=== PATIENT | female | born 1990 | race Caucasian/White ===

== ENCOUNTER → 2017-07-01 21:52 | Emergency (ER) | payer BC ==
[~2017-07-01 21:52] MED LIST: Metoclopramide IV* 5 MG/ML 2 ML VIAL IV SLOW PU ONE; NS 0.9% 1000 ML* 1,000 ML IV ONE
--- NOTE | 2017-07-01 22:36 | ED ---
- HPI Summary HPI Summary: 27F LMp in may at 6 weeks presents with abdominal pain since last night. She states started to bleed last night. She states she is miscarrying. She denies any fevers. She admits to nausea vomiting diarrhea. She denies any pain with urination. She denies any flank pain. States her abdominal pain is lower and is crap like and comes in waves. She is passing blood clots. She is bleeding as much as a period. She denies any lightheadedness. She had a confirmed by urine two weeks ago. She called her anatomic pathology assistant who told her to come here. - History of Current Complaint Chief Complaint: EDOBProblems Stated Complaint: ABD PAIN Time Seen by Provider: 07/01/17 22:00 Pain Intensity: 8 - Allergies/Home Medications Allergies/Adverse Reactions: Allergies Allergy/AdvReac Type Severity Reaction Status Date / Time No Known Allergies Allergy Verified 07/01/17 21:54 PMH/Surg Hx/FS Hx/Imm Hx Endocrine/Hematology History: Denies: Hx Anticoagulant Therapy Respiratory History: Denies: Hx Asthma Infectious Disease History: No Infectious Disease History: Denies: Traveled Outside the [place] in Last 30 Days - Family History Known Family History: Negative: Blood Disorder - Social History Alcohol Use: Rare Substance Use Type: Reports: None Smoking Status (MU): Never Smoked Tobacco Review of Systems Negative: Fever Negative: Chest Pain Negative: Shortness Of Breath Positive: Abdominal Pain, Vomiting, Diarrhea, Nausea All Other Systems Reviewed And Are Negative: Yes Physical Exam - Physical Exam Triage Information Reviewed: Yes Vital Signs Reviewed: Yes Appearance: Positive: Well-Appearing Skin: Positive: Warm, Dry Head/Face: Positive: Normal Head/Face Inspection Eyes: Positive: Normal, Conjunctiva Clear Respiratory/Lung Sounds: Positive: Clear to Auscultation, Breath Sounds Present Cardiovascular: Positive: Normal, RRR Abdomen Description: Positive: Soft, Other: - mild suprapubic tenderness Bowel Sounds: Positive: Present Musculoskeletal: Positive: Normal Neurological: Positive: Normal Psychiatric: Positive: Normal Diagnostics - Vital Signs Vital Signs Temp Pulse Resp BP Pulse Ox 07/01/17 21:55 97.9 F 89 18 116/73 100 - Laboratory Result Diagrams: 07/01/17 23:00 07/01/17 23:00 Lab Statement: Any lab studies that have been ordered have been reviewed, and results considered in the medical decision making process. - Ultrasound No standard instances Ultrasound Interpretation: Positive (See Comments) - Endometrium and cervix canal with thickened heterogeneous fluid likely reflecting blood products. Normal left and right ovaries. Ultrasound Interpretation Completed By: Radiologist Course/Dx - Course Course Of Treatment: 27F LMp in may at 6 weeks presents with abdominal pain since last night. She states started to bleed last night. She states she is miscarrying. She denies any fevers. She admits to nausea vomiting diarrhea. She denies any pain with urination. She denies any flank pain. States her abdominal pain is lower and is crap like and comes in waves. She is passing blood clots. She is bleeding as much as a period. She denies any lightheadedness. She had a confirmed by urine two weeks ago. She called her anatomic pathology assistant who told her to come here. On exam tenderness mild suprapubic. States was feeling better. Has white blood cell count elevated but CRP is normal. Ultrasound shows no intrauterine shows heterogeneous fluid throughout endometrium and cervical canal with an hCG of 800 this likely represents a miscarriage. We'll have follow-up with ob to make sure trending downwards. patient understand and agrees with plan. - Differential Diagnosis/HQI/PQRI: Spontaneous , Threatened , Intrauterine - Diagnoses Provider Diagnoses: Miscarriage Discharge - Sign-Out/Discharge Documenting (check all that apply): Discharge/Admit/Transfer - Discharge Plan Condition: Good Disposition: HOME Patient Education Materials: Miscarriage (ED) Referrals: No Primary Care Phys,NOPCP [Primary Care Provider] - Additional Instructions: Follow up with obgyn to trend hcg level Take Tylenol or ibuprofen every 6 hours for pain Return to ED if develop fever or any new or worsening symptoms - Billing Disposition and Condition Condition: GOOD Disposition: HOME
[2017-07-01 23:17] LABS: Hematocrit 37 % (35-47); Hemoglobin 12.7 g/dl (12.0-16.0); Mean Corpuscular HGB Conc 35 g/dl (31-36); Mean Corpuscular Hemoglobin 32 pg (27-31); Mean Corpuscular Volume 94 fL (80-97); Red Blood Count 3.93 10^6/ul (4.0-5.4); Red Cell Distribution Width 12 % (10.5-15); White Blood Count 14.3 10^3/ul (3.5-10.8)
[2017-07-01 23:28] LABS: EGFR Non-African American 94.1 (>60)
[2017-07-01 23:31] LABS: INR 0.9 (0.77-1.02)
[2017-07-01 23:59] LABS: ABS Basophils 0.1 10^3/ul (0-0.2); ABS Eosinophils 0.1 10^3/ul (0-0.6); ABS Lymphocytes 2.8 10^3/ul (1.0-4.8); ABS Neutrophils 10.3 10^3/ul (1.5-7.7); ABS Nucleated RBC 0 10^3/ul; Eosinophil % 0.8 % (0-6); Lymphocyte % 19.6 % (25-47); Mean Platelet Volume 9.3 um3 (7.4-10.4); Nucleated Red Blood Cells % 0; Platelet Count 209 10^3/ul (150-450)
[2017-07-02 00:41] VITALS: BP 151/82
--- NOTE | 2017-07-02 08:03 | RAD ---
HISTORY: Bleeding and cramping since the previous night COMPARISONS: None TECHNIQUE: Multiple transverse and longitudinal ultrasound images were obtained of the pelvis using grayscale, color flow, spectral and M-mode sonographic imaging. FINDINGS: UTERUS: The uterus measures 8.9 x 3.3 x 5.3 cm. The endometrial stripe is heterogeneous but avascular measuring up to 15 mm in diameter. GESTATION: There is no gestational sac or products of conception identified. CUL-DE-SAC: There is a moderate amount of free fluid in the right greater than left adnexa. RIGHT OVARY: The right ovary measures 3.1 x 2.6 x 2.1 cm. LEFT OVARY: The left ovary measures 4.1 x 1.3 x 1.4 cm. IMPRESSION: No live intrauterine or products of conception identified. Thickened and avascular material in the endometrial lumen could be products of conception undergoing spontaneous . Alternative diagnoses include a too early to identify or ectopic . Close clinical follow-up including serial beta hCGs is advised.
== END | disposition home or self-care (01) ==
LOC: ED 21:52
DX: O03.9 Complete or unspecified spontaneous abortion without complication (principal); R11.2 Nausea with vomiting, unspecified; R19.7 Diarrhea, unspecified; R10.30 Lower abdominal pain, unspecified
CPT/HCPCS: 36415; 76817; 80053; 83690; 83735; 84702; 85025; 85610; 85730; 86141; 86900; 86901; 96360; 99282

== ENCOUNTER 2018-06-06 18:10 | Inpatient (IN) | payer OTHER ==
[2018-06-06] MEDS ORDERED: Lactated Ringers 1000 ML Bag* 1,000 ML IV ONE ×2 (18:32→20:11)
[2018-06-06] MEDS ORDERED: Buffered Lidocaine 1% SYRIN* 1 ML/SYRINGE INTRADERM ONE (18:32)
[2018-06-06] MEDS ORDERED: OBEPIDURAL* 250 ML EPIDURAL ONE (18:41)
[2018-06-06 18:49] LABS: ABS Basophils 0.1 10^3/ul (0-0.2); ABS Eosinophils 0 10^3/ul (0-0.6); ABS Lymphocytes 1.5 10^3/ul (1.0-4.8); ABS Monocytes 1.5 10^3/ul (0-0.8); ABS Neutrophils 15.2 10^3/ul (1.5-7.7); ABS Nucleated RBC 0 10^3/ul; Eosinophil % 0 %; Hematocrit 38 % (33-41); Hemoglobin 13.3 g/dL (12.0-16.0); Lymphocyte % 8.2 %; Mean Corpuscular HGB Conc 35 g/dL (31-36); Mean Corpuscular Hemoglobin 34 pg (27-31); Mean Corpuscular Volume 98 fL (80-97); Nucleated Red Blood Cells % 0; Platelet Count 185 10^3/uL (150-450); Red Blood Count 3.88 10^6 /uL (3.70-4.87); Red Cell Distribution Width 13 % (10.5-15); White Blood Count 18.4 10^3/uL (3.5-10.8)
[2018-06-06] MEDS: Lactated Ringers 1000 ML Bag* 1,000 ML IV SCH ×3 (19:10→22:58)
[2018-06-06] MEDS ORDERED: Phenylephrine 40 MCG/ML SYRINGE ONE (20:08)
[2018-06-06] MEDS ORDERED: Phenylephrine 10 MG/ML VIAL* 1 ML VIAL ONE (20:08)
[2018-06-06] MEDS ORDERED: Lactated Ringers 1000 ML Bag* 500 ML IV PRN ×2 (20:11)
[2018-06-06] MEDS ORDERED: Phenylephrine 40 MCG/ML SYRINGE IV PUSH PRN ×2 (20:11)
[2018-06-06] MEDS ORDERED: Sodium Citrate/Citric Acid* 15 ML UDC PO PRN (20:11)
[2018-06-06] MEDS ORDERED: Famotidine TAB* 20 MG PO PRN (20:11)
[2018-06-06] MEDS ORDERED: EPHEDrine (Pressors)* 50 MG/ML VIAL IV PUSH PRN ×2 (20:11)
--- NOTE | 2018-06-06 20:30 | HP ---
General Information - Reason for Visit long latent phase of labor/ desires pain management - General Information Maternal Age: 28 Grav: 2 Para: 0 SAB: 1 IEA: 0 Estimated Due Date: 05/27/18 Determined By: LMP Maternal Blood Type and Rh: A Positive - Results this Serology/RPR Result: Non-Reactive Rubella Result: Immune HBsAg Result: Negative HIV Result: Negative GBS Culture Result: Negative Past Medical History Delivery History: See Records Pertinent Past Medical History: See Records Pertinent Past Surgical History: See Records Pertinent Family History: See Records - Antepartal Records Antepartal Records: Reviewed, Uncomplicated Review of Systems Constitutional: Uncomfortable CV Complaint: No Respiratory: Shortness of Breath: No Gastrointestinal: No Nausea/Vomiting Genitourinary: No Dysuria Musculoskeletal: Back Pain, Contractions Neurological: No Headache Movement: Normal Exam Allergies/Adverse Reactions: Allergies No Known Allergies Allergy (Verified 07/01/17 21:54) Lab Values - Entire Visit: Laboratory Tests 06/06/18 06/06/18 18:35 18:35 WBC 18.4 H RBC 3.88 Hgb 13.3 Hct 38 MCV 98 H MCH 34 H MCHC 35 RDW 13 Plt Count 185 MPV 11.0 H Neut % (Auto) 82.7 Lymph % (Auto) 8.2 [place] % (Auto) 8.3 Eos % (Auto) 0 Baso % (Auto) 0.8 Absolute Neuts (auto) 15.2 H Absolute Lymphs (auto) 1.5 Absolute Monos (auto) 1.5 H Absolute Eos (auto) 0 Absolute Basos (auto) 0.1 Absolute Nucleated RBC 0 Nucleated RBC % 0 Blood Type A Positive Antibody Screen Negative - Measurements Height: 5 ft 1 in Weight: 133 lb Weight in lbs: 133.481740 Body Mass Index (BMI): 25.1 Pre- Weight: 107 lb Weight Gained This : 26 lbs and 0 ozs - Exam Breast: Breast Exam Deferred CVA: No CVA Tenderness Extremities: No Edema Heart: Normal Rhythm/Heart Sounds HEENT: No Significant Findings Lungs: Clear Bilaterally Rectal: Rectal Exam Deferred Reflexes: DTR 2+ Thyroid: No Thyromegaly - Abdominal Exam Abdomen Exam: Non-Tender - Ultrasound/Biophysical Profile Ultrasound Status: Not Done Targeted Exam Findings Cervical Exam: 2cm, 3cm Effacement: 90% Station: -1 Presenting Part: Vertex Membrane Status: Intact EFM Findings - External Monitor Findings Baseline Heart Rate: 140 External Monitor Findings: Accelerations Present, No Pattern of Variable or Late Decelerations, Variability Moderate Contractions: Mild - q4 Assessment/Plan - Assessment Pt 28 yo G1 presents at 41 3/7 weeks with prolonged latent phase of labor/ home transfer - Obstetrical Risk Factors Risk Factors Comment: will admit give epidural for pain relief and then begin augmentation of labor. Pt in agreement with plan. - Plan Plan: Admit - Anticipate Vaginal Delivery
[2018-06-06] MEDS ORDERED: OBEPIDURAL* 250 ML EPIDURAL SCH (21:00)
[2018-06-06] MEDS ORDERED: Lactated Ringers 1000 ML Bag* 1,000 ML IV SCH (21:00)
[2018-06-06] MEDS ORDERED: Oxytocin in LR* 20 UNITS/1,000 ML BAG IVPB SCH (21:00)
[2018-06-06] MEDS ORDERED: Calcium Carbonate CHEW TAB* 500 MG (TUMS) ONE (23:58)
[2018-06-07] MEDS ORDERED: Calcium Carbonate CHEW TAB* 500 MG (TUMS) PO PRN (00:59)
[2018-06-07] MEDS ORDERED: ceFOXitin 2 GM IVPREMIX* 2 GM/50 ML BAG IVPB ONE (05:59)
[2018-06-07] MEDS ORDERED: fentaNYL* 50 MCG/ML 2 ML VIAL (100 MCG VIAL) ONE ×2 (06:04→06:10)
[2018-06-07] MEDS ORDERED: Chloroprocaine 3%* 20 ML VIAL ONE (06:05)
[2018-06-07] MEDS ORDERED: Dexamethasone IV* 4 MG/ML 1 ML (4 MG) ONE (06:13)
[2018-06-07] MEDS ORDERED: Ondansetron INJ* 2 MG/ML VIAL ONE (06:13)
[2018-06-07] MEDS ORDERED: OXYTOCIN* 10 UNITS/ML 1 ML VIAL ONE (06:13)
[2018-06-07] MEDS ORDERED: KETAMINE HCL* 50 MG/ML 10 ML VIAL ONE (06:42)
[2018-06-07] MEDS ORDERED: Lidocaine 2% EPI 1:200000 MPF*10-20 ML VIAL ONE (06:42)
[2018-06-07] MEDS ORDERED: Morphine PF AMP (0.5MG/ML)* 5 MG/10 ML AMP ONE (06:59)
[2018-06-07] MEDS ORDERED: oxyCODONE TAB* 5 MG TAB PO PRN ×2 (07:07→07:09)
[2018-06-07] MEDS ORDERED: fentaNYL* 50 MCG/ML 2 ML VIAL (100 MCG VIAL) IV PRN (07:07)
[2018-06-07] MEDS ORDERED: DiMENhydriNATE IV* 50 MG/ML VIAL IV PUSH PRN ×2 (07:07→07:09)
[2018-06-07] MEDS ORDERED: Naloxone* 0.4 MG/ML 1 ML VIAL IV PRN ×2 (07:07→07:09)
[2018-06-07] MEDS ORDERED: Ketorolac INJ* 30 MG/ML 1 ML VIAL IV PRN (07:07)
[2018-06-07] MEDS ORDERED: Acetaminophen IV 1GM/100ML * 1,000 MG/100 ML VIAL IVPB ONE (07:07)
[2018-06-07] MEDS ORDERED: Ondansetron INJ* 2 MG/ML VIAL IV PRN (07:09)
[2018-06-07] MEDS ORDERED: Nalbuphine* 10 MG/ML 1 ML VIAL IV PRN (07:09)
[2018-06-07] MEDS ORDERED: Scopolamine 1.5 mg* PATCH TRANSDERM PRN (07:09)
[2018-06-07] MEDS ORDERED: oxyCODONE/Acetamin 5/325 MG* TAB PO PRN ×2 (07:48)
[2018-06-07] MEDS ORDERED: Dibucaine 1% 28.35 GM TUBE PR PRN (07:48)
[2018-06-07] MEDS ORDERED: Glycerin ADULT SUPP PR PRN (07:48)
[2018-06-07] MEDS ORDERED: Witch Hazel PAD* JAR TOPICAL PRN (07:48)
[2018-06-07] MEDS ORDERED: Tetan/Diph/Pertus SYR(Tdap)* 0.5 ML SYR(BOOSTRIX) use SYR IM ONE (07:48)
[2018-06-07] MEDS ORDERED: Oxytocin in LR* 20 UNITS/1,000 ML BAG IVPB SCH (08:00)
[2018-06-07] MEDS ORDERED: Lactated Ringers 1000 ML Bag* 1,000 ML IV SCH (08:00)
--- NOTE | 2018-06-07 09:36 | OP ---
DATE OF OPERATION: 06/07/18 - ROOM #102 DATE OF : 89 SURGEON: Imani Steven MD. MANDARIN CHINESE TEACHER: Ervin Bella CNM. ANESTHESIOLOGIST: Dr. Driscoll. ANESTHESIA: Epidural with local. PRE-OP DIAGNOSIS: Intrauterine 41 and 4/7 weeks, arrest of dilation. POST-OP DIAGNOSIS: Intrauterine 41 and 4/7 weeks, arrest of dilation. OPERATIVE PROCEDURE: Primary low-transverse section. ESTIMATED BLOOD LOSS: 600 cc. URINE OUTPUT: 600 cc. IV FLUIDS: 2200 cc of crystalloid. FINDINGS: Revealed a vertex LOT male , nuchal cord x1, arm cord x1, body cord x1. White meconium, Apgars were 9 at 1 minute, 9 at 5 minutes, 8 pounds 1 ounce. Placenta was manually extracted. Three-vessel cord intact. Normal- appearing tubes and ovaries bilaterally. Normal uterine cavity without evidence of retained membranes or placental tissue. COMPLICATIONS: None apparent. DISPOSITION: Stable to recovery room. DESCRIPTION OF PROCEDURE: The patient was placed in dorsal lithotomy position. The abdomen was prepped and draped in sterile standard fashion. The patient was identified with universal protocol. Anesthesia was tested to appropriate level. Incision was made. The patient noted some tenderness to the left, at which point 18 cc of 2% lidocaine was injected in the incisional site. A scalpel was used to carry down through to the fascia. The fascia was scored in the midline, extended laterally and superiorly using curved Hinton scissors, superiorly and inferiorly from the rectus muscle with blunt and sharp dissection. Peritoneum was then entered bluntly. Bladder blade was inserted. Lower uterine segment was identified. Bladder flap was created through blunt and sharp dissection. Incision was made in the lower uterine segment. Amniotic fluid was noted to have some white meconium. The was found to be LOT. Head was delivered, nuchal cord reduced. Arms were delivered, nuchal cord reduced. Body was delivered and body cord reduced. Cord was allowed to pulse for 60 seconds. The cord was then clamped and cut and baby was handed off to the ball truing machine operator. Appropriate cord blood was obtained. The placenta was then manually extracted. The uterus was exteriorized. Uterine cavity was explored, noted to be free of any membranes or placental tissue. Uterine incision itself was reapproximated in two layers, first layer running locked 0 Vicryl, second layer running imbricated 0 Vicryl. Tubes and ovaries normal in appearance. Uterus was returned intraabdominally. Colic gutters were lavaged. Hemostasis was assured at the hysterotomy site. The peritoneum was then clamped with Kellys and the peritoneum was then reapproximated using 3-0 Vicryl in a running fashion. Subfascial area was visualized and noted to be hemostatic. Fascia was reapproximated using 0 Vicryl in a running fashion x2. Subcu was lavaged. Hemostasis was assured with Bovie coagulation and a subcuticular stitch using 3-0 Vicryl was placed in an interrupted fashion. Skin was then reapproximated using 4-0 Monocryl in a subcuticular fashion. Mastisol and Steris were applied. All sponge, instrument, and blade counts were correct throughout the case. The patient tolerated the procedure well and went to recovery room in stable condition. [id number]/[facility] #: [id number] JON
[2018-06-07] MEDS: Simethicone TAB* 80 MG TAB.CHEW PO SCH ×3 (14:15→20:43)
[2018-06-07] MEDS: Docusate CAP* 100 MG PO SCH ×2 (14:15→20:58)
[2018-06-07] MEDS: Ketorolac INJ* 30 MG/ML 1 ML VIAL IV SCH ×2 (14:16→20:43)
[2018-06-07] MEDS: Acetaminophen TAB* 325 MG PO SCH ×2 (20:59→23:51)
[2018-06-08] MEDS: Ketorolac INJ* 30 MG/ML 1 ML VIAL IV SCH (03:09)
[2018-06-08 07:07] LABS: ABS Basophils 0.1 10^3/ul (0-0.2); ABS Eosinophils 0 10^3/ul (0-0.6); ABS Monocytes 1.5 10^3/ul (0-0.8); ABS Neutrophils 13.4 10^3/ul (1.5-7.7); ABS Nucleated RBC 0 10^3/ul; Eosinophil % 0.2 %; Hematocrit 31 % (33-41); Hemoglobin 10.5 g/dL (12.0-16.0); Lymphocyte % 11.8 %; Mean Corpuscular HGB Conc 35 g/dL (31-36); Mean Corpuscular Hemoglobin 34 pg (27-31); Mean Corpuscular Volume 98 fL (80-97); Mean Platelet Volume 10.5 fL (7.4-10.4); Nucleated Red Blood Cells % 0; Platelet Count 134 10^3/uL (150-450); Red Cell Distribution Width 13 % (10.5-15); White Blood Count 17.1 10^3/uL (3.5-10.8)
[2018-06-08] MEDS ORDERED: Ferrous Gluconate TAB* 324 MG TAB PO SCH (09:00)
[2018-06-08] MEDS: Ibuprofen TAB* 600 MG PO PRN ×3 (09:16→21:38)
[2018-06-08] MEDS: Simethicone TAB* 80 MG TAB.CHEW PO SCH ×4 (09:16→20:59)
[2018-06-08] MEDS: Docusate CAP* 100 MG PO SCH ×4 (09:16→20:59)
[2018-06-08] MEDS: Acetaminophen TAB* 325 MG PO PRN ×2 (17:45→21:46)
[2018-06-09] MEDS: Ibuprofen TAB* 600 MG PO PRN (05:39)
[2018-06-09] MEDS: Docusate CAP* 100 MG PO SCH (08:21)
[2018-06-09] MEDS: Acetaminophen TAB* 325 MG PO PRN (08:21)
[2018-06-09] MEDS: Simethicone TAB* 80 MG TAB.CHEW PO SCH (08:21)
[2018-06-09 09:12] VITALS: BP 131/88
[2018-06-10] MEDS ORDERED: Scopolamine PATCH Remove* 1 NOTE MISC PATCH OFF PRN (07:10)
== END 2018-06-09 11:08 | disposition home or self-care (01) | DRG 540 ==
LOC: MCHOBOUT 18:10 → MCHOB 18:58
PROVIDERS: ADMIT Obstetrics & Gynecology; ATTEND Obstetrics & Gynecology
PROC: 4A1HXCZ Monitoring of Products of Conception, Cardiac Rate, External Approach (ICD-10-PCS; 2018-06-07)
PROC: 10D00Z1 Extraction of Products of Conception, Low, Open Approach (ICD-10-PCS; principal; 2018-06-07 06:17)
DX: O63.0 Prolonged first stage (of labor) (principal); O48.0 Post-term pregnancy; O69.81X0 Labor and delivery complicated by cord around neck, without compression, not applicable or unspecified; O62.1 Secondary uterine inertia; O77.0 Labor and delivery complicated by meconium in amniotic fluid; O69.89X0 Labor and delivery complicated by other cord complications, not applicable or unspecified; Z3A.41 41 weeks gestation of pregnancy; Z37.0 Single live birth
CPT/HCPCS: 36415; 85025; 86850; 86900; 86901; A9270-GY; J0694; J1100; J1885; J2400; J2405; J2590; J3010